=== PATIENT | female | born 1995 | race Caucasian/White ===

== ENCOUNTER 2018-12-30 08:07 | Emergency (ER) | payer OTHER ==
[~2018-12-30] VITALS: Ht 182.9 cm; Wt 120.5 kg
[2018-12-30 08:22] VITALS: BP 149/90; TEMP 97.6
[2018-12-30] MEDS ORDERED: AMOXICILLIN 8751 TAB PO (11:26)
[2018-12-30] MEDS ORDERED: FLONASEALLERGY NS (11:26)
[2018-12-30 11:40] VITALS: PULSE 82
== END 2018-12-30 11:40 | disposition home or self-care (01) ==
LOC: COL.ER 08:07
DX: G43.909 Migraine, unspecified, not intractable, without status migrainosus (principal); J32.2 Chronic ethmoidal sinusitis; Z90.89 Acquired absence of other organs
CPT/HCPCS: J1885; J2405; J7030